=== PATIENT | female | born 1980 | race Caucasian/White ===

== ENCOUNTER → 2021-04-22 | Outpatient (CLI) | payer OTHER ==
--- NOTE | 2021-04-22 22:45 | CONS ---
CONSULTATION DATE OF SERVICE: 04/22/2021 This 40-year-old lady has [facility] for symptoms of excessive daytime sleepiness and snoring. HISTORY OF PRESENT ILLNESS/SLEEP-WAKE EVALUATION: Patient's usual sleep schedule on weekdays is from 10 or 11 p.m. until 8 a.m. and on weekends from 10 or 11 p.m. until 5 or 6 a.m. Usually no problems with falling asleep, although she has a TV set in the bedroom. She sleeps in different positions. She has loud snoring and she wakes up from sleep two times with nocturia. She also tosses and turns during the night. In the morning the patient wakes up tired, has difficulties paying attention, falling asleep during the day. She has problems with memory, concentration, irritability, depression and anxiety. [place] Sleepiness Scale is significantly increased at 14. She may take two naps during the day. She has positive history of vivid dreaming during the naps. She could see dreams during the night, usually in the second part of the night. No history of hypnagogic hallucinations, sleep paralysis or cataplexy. PAST MEDICAL HISTORY: Positive for anxiety, depression, hyperlipidemia, restless legs syndrome, more in the past than now. PAST SURGICAL HISTORY: Tubal ligation. MEDICATIONS: 1. Atorvastatin 10 mg once a day. 2. Escitalopram 20 mg once a day. 3. Aripiprazole 2 mg once a day. 4. Vitamin D2. SOCIAL HISTORY: The patient smokes marijuana once a day for a couple of years. No smoking of nicotine or using alcohol. FAMILY HISTORY: Snoring. PHYSICAL EXAMINATION: GENERAL: Pleasant lady without distress. VITAL SIGNS: BP 92/59, HR 64, RR 12, height 5 feet 6 inches, weight 183.0, temperature 97.3, oxygen saturation at room air 96%. Body mass index 29.5. HEENT: PERRLA, EOMI, evaluation of oropharynx showed tongue protrudes midline. Low position of soft palate; Mallampati III. NECK: Supple, no JVD. Thyroid is not palpable. Neck measures 14-1/2 inches in circumference. LUNGS: Clear to percussion and to auscultation. Good air exchange. No wheezing or rhonchi. HEART: S1, S2 regular. No murmurs, gallops, or rubs. ABDOMEN: Soft and nontender. Bowel sounds are present. No organomegaly appreciated. EXTREMITIES: No clubbing or cyanosis. 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 Cranial nerves 2 to 7 intact. There is no fasciculation or atrophy. noted. No focal deficits observed. IMPRESSION: 1. Loud snoring, awakenings from sleep with nocturia, low position of soft palate, Mallampati III, sleepiness during the day, [place] Sleepiness Scale increased at 14; obstructive sleep apnea-hypopnea syndrome. 2. The patient takes several naps during the day with vivid dreams. Differential diagnosis should include hypersomnia and narcolepsy without cataplexy. [place] Sleepiness Scale significantly increased at 14. 3. Overweight, borderline obesity. BMI 29.5. 4. History of restless legs in the past. 5. History of anxiety. 6. History of depression. 7. Hyperlipidemia. 8. Status post tubal ligation. 9. Marijuana smoking once a day. PLAN: 1. Polysomnography for evaluation of patient's breathing during sleep. 2. Following plan after reviewing results of sleep study. If sleep study is negative for obstructive sleep apnea-hypopnea syndrome, we will proceed with PSG and MSLT. If sleep study is positive, then we will proceed with CPAP titration. 3. Losing weight. 4. Sleep hygiene with regular time in bed for 7-1/2 to 8 hours. 5. No driving if feeling sleepiness. Thank you very much for referring this patient for consultation. Sincerely, Marbin Henry MD, PhD, FAASM Diplomat of [employer] Sleep Medicine Board of [place] [employer] [facility] [place] MMODL / OMAIRAN: [id number] /
== END ==
LOC: SLEEP 16:17
PROVIDERS: ATTEND Internal Medicine
DX: G47.33 Obstructive sleep apnea (adult) (pediatric) (principal); E66.9 Obesity, unspecified; F41.9 Anxiety disorder, unspecified; F32.9 Major depressive disorder, single episode, unspecified; E78.5 Hyperlipidemia, unspecified; F12.90 Cannabis use, unspecified, uncomplicated; G25.81 Restless legs syndrome; Z68.29 Body mass index [BMI] 29.0-29.9, adult; Z98.51 Tubal ligation status
CPT/HCPCS: 99202